=== PATIENT | female | born 1950 | race Caucasian/White ===

== ENCOUNTER → 2016-09-09 | Day surgery (SDC) | payer OTHER ==
[~2016-09-09] VITALS: Ht 172.7 cm; Wt 68.0 kg
[~2016-09-09] MED LIST: ACETAMINOPHEN/HYDROcodone 325 MG/10 MG TAB PO PRN; AMBI5TAB PO; CEPH-460 PO; CHLORHEXIDINE GLUCONATE 4% SOLN 120 ML BTL TOP SCH; CHOL1CAP34 PO; DO NOT ADM ANY ANTICOAGULANT DRUGS XX PRN; GENTAMICIN SULFATE 80 MG/2 ML VIAL ONE; HYDR-3288 PO; HYDR-3366 PO; INSULIN HUMAN REGULAR 1,000 UNITS/10 ML VIAL SQ PRN; LACTATED RINGER'S 1000 ML IV SCH; METOPROLOL TARTRATE 25 MG TAB PO PRN; MORPHINE SULFATE 4 MG/ML INJ ONE; ONDANSETRON HCL 4 MG/2 ML VIAL IV PUSH ONE; OYST250T4 PO; PROPOFOL 200 MG/20 ML AMP IV ONE; SODIUM CHLORID 0.9% 500 ML IV SCH; SODIUM CHLORIDE 0.9% FLUSH 5 ML FLUSH IVF PRN; SODIUM CHLORIDE 0.9% FLUSH 5 ML FLUSH IVF SCH; VANCOMYCIN 1000 MG/NS 250 ML (for <70 kg) IV SCH; WALKER/ADULT/FO1 MIS; WHEEMIS3; XARE10TA PO; ZOFR4TAB PO; ceFAZolin 2 GM PREMIX 50 ML IV SCH; fentaNYL CITRATE 250 MCG/5 ML AMP ONE
[2016-09-09 06:00] VITALS: BP 139/76; PULSE 67; RESP 16; TEMP 97.7; O2SAT 99
--- NOTE | 2016-09-09 07:20 | PD.OP ---
Operative Report Date of Surgery: Sep 09, 2016 Preoperative Diagnosis: Comminuted left distal tibia and fibular fractures with retained external fixation Postoperative Diagnosis: Procedure: Removal of external fixation Anesthesia: Gen. Surgeon: Jose Jarquin Category Director(s): PATTI Cadena PA-C The surgical procedure was assisted by my physician chef's assistant. My P.A. presence was necessary throughout this case for the manipulation and positioning of the surgical extremity. My P.A. was assisting me throughout the duration of this procedure. The skill set of a physician chef's assistant was medically necessary to complete this procedure. During the surgical case the surgical services tech was working at the back table and the physician chef's assistant was directly assisting me. Operation and Findings: Christa is well-known to me from comminuted left tibia and fibular fractures. Informed consent was obtained for external fixation removal. Informed consent was confirmed and operative site was marked. She is brought to the operating room. She was given IV sedation and LMA. Timeout procedure was performed. Procedure began with removal of external fixation. Clamps were loosened. Clamps and bars were removed. Each of the external fixator pins was now removed. The ankle was gently manipulated. As able to achieve 5 of dorsiflexion and 20 of plantarflexion. Sterile dressings were applied. She was placed into a fracture boot. She was awakened and transferred to recovery room in stable condition. Jose Jarquin MD Sep 09, 2016 07:20
[2016-09-09 07:43] VITALS: RESP 18; O2SAT 100
[2016-09-09 09:00] VITALS: BP 152/84
== END | disposition home or self-care (01) ==
LOC: HSDC 05:50
PROVIDERS: ATTEND Orthopaedic Surgery Orthopaedic Trauma
DX: S82.302D Unspecified fracture of lower end of left tibia, subsequent encounter for closed fracture with routine healing (principal); E78.5 Hyperlipidemia, unspecified; W17.89XD Other fall from one level to another, subsequent encounter
CPT/HCPCS: 01390; 20694; J1580; J2270; J2405; J3010; J3370; J7050; J7120

== ENCOUNTER → 2016-12-20 | Day surgery (SDC) | payer OTHER ==
[~2016-12-20] VITALS: Ht 172.7 cm; Wt 65.1 kg
[~2016-12-20] MED LIST changes: +*HYDROmorphone PF 1 MG VIAL PERIprocedural Use ONLY ONE; +*morphine SULFATE 8 MG/ML PERIprocedure ONLY ONE; -ACETAMINOPHEN/HYDROcodone 325 MG/10 MG TAB PO PRN; +ACETAMINOPHEN/HYDROcodone 325 MG/7.5 MG TAB PO PRN; +BACITRACIN TOP OINT 15 GM TUBE ONE; +BUPIVACAINE/EPINEPHRINE 0.25% 50 ML VIAL ONE; +CHLORHEXIDINE GLUCONATE 2 % 1 PACK (2 CLOTHS) TOPICAL PRN; -CHLORHEXIDINE GLUCONATE 4% SOLN 120 ML BTL TOP SCH; +CHLORHEXIDINE GLUCONATE 4% SOLN 120 ML BTL TOPICAL SCH; -CHOL1CAP34 PO; +DO NOT ADM ANY ANTICOAGULANT DRUGS PRN; -DO NOT ADM ANY ANTICOAGULANT DRUGS XX PRN; +FAMOTIDINE 20 MG/2 ML VIAL ONE; -HYDR-3366 PO; +LACTATED RINGER'S 1000 ML INJ 1,000 ML IV ONE; +LACTATED RINGER'S 1000 ML IV PRN; -LACTATED RINGER'S 1000 ML IV SCH; +MIDAZOLAM HCL 2 MG/2 ML VIAL ONE; +MORPHINE SULFATE 4 MG/ML INJ IV PUSH PRN; -MORPHINE SULFATE 4 MG/ML INJ ONE; +ONDANSETRON HCL 4 MG/2 ML VIAL IV PRN; +SODIUM CHLORID 0.9% 500 ML IV PRN; -SODIUM CHLORID 0.9% 500 ML IV SCH; +SODIUM CHLORIDE 0.9% FLUSH 10 ML FLUSH IV FLUSH PRN; +SODIUM CHLORIDE 0.9% FLUSH 10 ML FLUSH IV FLUSH SCH; -SODIUM CHLORIDE 0.9% FLUSH 5 ML FLUSH IVF PRN; -SODIUM CHLORIDE 0.9% FLUSH 5 ML FLUSH IVF SCH; -XARE10TA PO
[2016-12-20 06:25] VITALS: BP 149/83; PULSE 62; RESP 18; TEMP 97.8; O2SAT 97
--- NOTE | 2016-12-20 09:32 | PD.OP ---
cc: Jose Jarquin MD Operative Report Date of Surgery: December 20, 2016 Preoperative Diagnosis: Left ankle open wound with exposed hardware Postoperative Diagnosis: Procedure: Removal of deep hardware left ankle, irrigation debridement of left fibula Anesthesia: Gen. Surgeon: Jose Jarquin Chart Changer(s): PATTI Cadena PA-C The surgical procedure was assisted by my physician conference assistant. My P.A. presence was necessary throughout this case for the manipulation and positioning of the surgical extremity. My P.A. was assisting me throughout the duration of this procedure. The skill set of a physician conference assistant was medically necessary to complete this procedure. During the surgical case the convenience recycle center tech was working at the back table and the physician conference assistant was directly assisting me. Operation and Findings: Christa is well-known to me from previous complex left distal tibia and fibula fractures. She has developed a wound over the distal fibula plate. Informed consent was obtained preoperatively and operative site was marked. She is brought to operating room. She is given IV sedation and general anesthesia. Left leg was prepped with alcohol followed by Hibiclens and draped usual sterile fashion. Timeout procedure was performed. Procedure began with incision through previous scar. Subcutaneous tissue dissected with Bovie. At this point attention was turned to plate removal. Scar tissue was incised around the plate. The plate was exposed each of the screws was loosened with a screwdriver. Each of the screws was then removed. The plate was elevated and removed. Next attention turned to debridement of the fibula. Curettes and rongeurs were used to debride the areas of the fibula. The fracture appeared to be completely healed. The specimen was obtained from the fibula and sent for cultures. Wound was now thoroughly irrigated. Overall the wound appeared to be relatively clean. Jose Jarquin MD December 20, 2016 09:32
[2016-12-20 11:20] VITALS: BP 136/74; PULSE 71; RESP 16; TEMP 97.8; O2SAT 97
--- NOTE | 2016-12-20 15:22 | RADRPT ---
EXAM DATE/TIME: 12/20/2016 09:17 [facility] COMPARISON: No previous studies available for comparison. INDICATIONS : Hardware removal left ankle. MEDICAL HISTORY : None. SURGICAL HISTORY : ORIF left ankle. ENCOUNTER: Subsequent ACUITY: 4 - 6 days PAIN SCORE: Non-responsive. LOCATION: Left ankle. FINDINGS: Single AP spot image of the ankle. Internal fixation plates and multiple transfixing screws in the di stal tibia. Old distal fibular fracture noted. CONCLUSION: Internal fixation hardware identified in the distal tibia. Joe Kaur MD on December 20, 2016 at 15:20 Board Certified Radiologist. This report was verified electronically.
== END | disposition home or self-care (01) ==
LOC: HSDC 05:51
PROVIDERS: ATTEND Orthopaedic Surgery Orthopaedic Trauma
DX: S82.302D Unspecified fracture of lower end of left tibia, subsequent encounter for closed fracture with routine healing (principal); B95.7 Other staphylococcus as the cause of diseases classified elsewhere
CPT/HCPCS: 01480; 20680; 73600; 76000; 86403; 87015; 87070; 87077; 87102; 87116; 87176; 87186; 87205; 87206; J0690; J1170; J1580; J2250; J2270; J2405; J3010; J3370; J7050; J7120